=== PATIENT | female | born 1955 | race Caucasian/White ===

== ENCOUNTER 2022-03-17 21:42 | Observation (INO) ==
[2022-03-17 22:15] LABS: Basophils # 0.1 10*3/uL (0.0-0.2); Basophils % 1.9 % (0.0-0.8); Eosinophils # 0.3 10*3/uL (0.0-0.87); Eosinophils % 4.7 % (0.00-10.9); Hematocrit 32.6 VOL% (35.7-47.0); Hemoglobin 10.7 GM/DL (12.0-16.0); Immature Granulocytes % 0.5 %; Immature Granulocytes Absolute 0.03 #; Lymphocytes # 1.3 10*3/uL (1.4-4.0); Lymphocytes % 20.3 % (21.3-54.2); Mean Corpuscular HGB Conc 32.8 GM/DL (32-36); Mean Corpuscular Volume 90.1 FL (87-102); Mean Platelet Volume 8.9 FL (9.6-12.0); Monocytes # 0.7 10*3/uL (0.11-0.8); Neutrophils % 61.6 % (38.7-73.9); Platelet Count 281 T/CUMM (130-400); Red Blood Count 3.62 MC/CUMM (3.8-5.5); Red Cell Distribution Width 13.3 % (9.3-17.3); White Blood Count 6.2 T/CUMM (4-12)
[2022-03-17 22:29] LABS: PT Patient Result 10.8 SECS (10.1-12.1); Partial Thromboplastin Time 34.8 SECS (23.7-32.9)
[2022-03-17 22:34] LABS: Albumin 3.5 G/DL (3.4-5.0); Bilirubin,Total 0.7 MG/DL (0.20-1.00); Calcium 8.8 MG/DL (8.5-10.1); Potassium 3.2 MMOL/L (3.5-5.1); Total Protein 6.3 G/DL (6.4-8.2)
[2022-03-17] MEDS ORDERED: POTASSIUM CHLORIDE 20 MEQ TABLET PO STA (23:19)
[2022-03-17] MEDS ORDERED: ONDANSETRON 4 MG/2 ML VIAL IV PRN (23:25)
[2022-03-17] MEDS ORDERED: ACETAMINOPHEN 325 MG TABLET PO PRN (23:25)
[2022-03-18 06:35] LABS: Basophils # 0.1 10*3/uL (0.0-0.2); Basophils % 2.2 % (0.0-0.8); Eosinophils # 0.3 10*3/uL (0.0-0.87); Hematocrit 32.1 VOL% (35.7-47.0); Hemoglobin 10.4 GM/DL (12.0-16.0); Immature Granulocytes % 0.2 %; Immature Granulocytes Absolute 0.01 #; Lymphocytes # 1.3 10*3/uL (1.4-4.0); Mean Corpuscular HGB Conc 32.4 GM/DL (32-36); Mean Corpuscular Volume 91.5 FL (87-102); Mean Platelet Volume 9.1 FL (9.6-12.0); Monocytes # 0.6 10*3/uL (0.11-0.8); Monocytes % 13.1 % (1.7-12.7); Neutrophils % 49.5 % (38.7-73.9); Platelet Count 265 T/CUMM (130-400); Red Blood Count 3.51 MC/CUMM (3.8-5.5); Red Cell Distribution Width 13.4 % (9.3-17.3); White Blood Count 4.5 T/CUMM (4-12)
[2022-03-18 06:43] LABS: Albumin 3.3 G/DL (3.4-5.0); Bilirubin,Total 0.8 MG/DL (0.20-1.00); Calcium 8.9 MG/DL (8.5-10.1); Osmolality,Calculated 273.7 MOS/KG (273-304); Potassium 3.8 MMOL/L (3.5-5.1); Risk Ratio 2.88; Total Protein 5.8 G/DL (6.4-8.2); VLDL Cholesterol 15.6 MG/DL
[2022-03-18] MEDS ORDERED: ENOXAPARIN 40 MG/0.4 ML SYRINGE SUBCUT SCH (09:00)
[2022-03-18] MEDS ORDERED: PANTOPRAZOLE 40 MG TABLET PO SCH (09:00)
[2022-03-18 12:08] VITALS: BP 133/80
== END 2022-03-18 15:54 | disposition home or self-care (01) ==
LOC: N.EDINP 21:42 → N.ED 21:42 → SUATTDRO 23:25 → N.2E 03-18 02:09
PROVIDERS: ADMIT Internal Medicine; ATTEND Internal Medicine